=== PATIENT | female | born 1965 | race Caucasian/White ===

== ENCOUNTER 2016-08-02 19:55 | Emergency (ER) | payer MEDICAID ==
[~2016-08-02] VITALS: Ht 175.3 cm; Wt 97.5 kg
[2016-08-02 20:03] VITALS: BP 129/77
[2016-08-02] MEDS ORDERED: SIMV20TA3 PO (21:13)
[2016-08-02] MEDS ORDERED: ALBU6.7H INH (21:13)
[2016-08-02] MEDS ORDERED: PANT40TA5 PO (21:13)
[2016-08-02] MEDS ORDERED: BUDE10.22 INH (21:13)
== END 2016-08-02 21:54 | disposition home or self-care (01) ==
LOC: ED 21:48
DX: J20.8 Acute bronchitis due to other specified organisms (principal); K21.9 Gastro-esophageal reflux disease without esophagitis; J45.909 Unspecified asthma, uncomplicated; E78.5 Hyperlipidemia, unspecified; Z86.73 Personal history of transient ischemic attack (TIA), and cerebral infarction without residual deficits; Z88.0 Allergy status to penicillin; Z88.8 Allergy status to other drugs, medicaments and biological substances; F17.200 Nicotine dependence, unspecified, uncomplicated
CPT/HCPCS: 71020

== ENCOUNTER 2017-07-15 16:00 | Emergency (ER) | payer MEDICAID ==
[~2017-07-15] VITALS: Ht 152.4 cm; Wt 92.9 kg
[~2017-07-15 16:00] MED LIST: ALBU6.7H INH; BUDE10.22 INH; PANT40TA5 PO; SIMV20TA3 PO
[2017-07-15 16:01] VITALS: BP 132/84
[2017-07-15] MEDS ORDERED: KETOROLAC 30 MG/1 ML ONE (16:27)
[2017-07-15] MEDS ORDERED: KETOROLAC 30 MG/1 ML IM ONE (16:30)
== END 2017-07-15 16:56 | disposition home or self-care (01) ==
LOC: ED 16:50
DX: S46.812A Strain of other muscles, fascia and tendons at shoulder and upper arm level, left arm, initial encounter (principal); J45.909 Unspecified asthma, uncomplicated; E78.5 Hyperlipidemia, unspecified; K21.9 Gastro-esophageal reflux disease without esophagitis; Y93.H1 Activity, digging, shoveling and raking; Y93.89 Activity, other specified; Y92.098 Other place in other non-institutional residence as the place of occurrence of the external cause; Y99.8 Other external cause status; Z86.73 Personal history of transient ischemic attack (TIA), and cerebral infarction without residual deficits; Z98.51 Tubal ligation status
CPT/HCPCS: 96372; 99283; J1885